=== PATIENT | female | born 1960 | race Caucasian/White ===

== ENCOUNTER → 2021-07-13 | Day surgery (SDC) | payer BC, OTHER ==
[~2021-07-13] MED LIST: BUPIVACAINE HCL 0.5% INJ 30 ML VIAL INJ ONE; BUPROPION XL150 MG PO; DEXAMETHASONE SOD PHOS INJ 4 MG/ML SDV IV ONE; FENTANYL CITRATE/PF 100MCG/2 ML INJ ONE; GLYCOPYRROLATE INJ 0.2 MG/ML VIAL IV ONE; LABETALOL HCL 5 MG/ML 20ML VIAL IV ONE; LIDOCAINE HCL 2% LOCAL INJ 5 ML SDV VIAL INJ ONE; MIDAZOLAM HCL 2 MG/2 ML VIAL ONE; NEOSTIGMINE 1 MG/ML 10ML VIAL IV ONE; NEOSTIGMINE 1 MG/ML 10ML VIAL ONE; ONDANSETRON HCL INJ 2MG/ML 2ML 2 MG/ML VIAL IV ONE; POVIDONE IODINE 0.05% 0.05 % ML PO ONE; PROPOFOL IV EMULSION 10 MG/ML 20 ML VIAL IV ONE; ROCURONIUM BROMIDE 10 MG/ML 5ML VIAL IV ONE; SERTRALINE HCL100 MG PO; SERZONE; SEVOFLURANE INHAL SOLN 250 ML PEN BTL INH ONE; SODIUM CHLORIDE 0.9% 50ML 100 ML ONE; SUCCINYLCHOLINE CHLORIDE 20 MG/ML 10ML VIAL IV ONE; ZOLOFT
[2021-07-13 14:00] VITALS: BP 142/46
== END | disposition home or self-care (01) ==
LOC: OR 10:00
PROVIDERS: ATTEND Podiatrist Foot & Ankle Surgery
DX: M66.872 Spontaneous rupture of other tendons, left ankle and foot (principal); M21.6X2 Other acquired deformities of left foot; M77.32 Calcaneal spur, left foot; F41.9 Anxiety disorder, unspecified; Z01.810 Encounter for preprocedural cardiovascular examination; Z01.812 Encounter for preprocedural laboratory examination; Z20.822 Contact with and (suspected) exposure to COVID-19; Z79.899 Other long term (current) drug therapy
CPT/HCPCS: 27654; 27687; 28118; 93005; J0330; J0690; J1100; J2001; J2250; J2405; J2704; J2710; J3010; J3490; Q4150; U0002; 76000

== ENCOUNTER 2025-05-23 08:54 | Emergency (ER) | payer MEDICARE ==
[~2025-05-23] VITALS: Ht 157.5 cm; Wt 96.2 kg
[~2025-05-23 08:54] MED LIST changes: -BUPIVACAINE HCL 0.5% INJ 30 ML VIAL INJ ONE; -DEXAMETHASONE SOD PHOS INJ 4 MG/ML SDV IV ONE; -FENTANYL CITRATE/PF 100MCG/2 ML INJ ONE; -GLYCOPYRROLATE INJ 0.2 MG/ML VIAL IV ONE; -LABETALOL HCL 5 MG/ML 20ML VIAL IV ONE; -LIDOCAINE HCL 2% LOCAL INJ 5 ML SDV VIAL INJ ONE; -MIDAZOLAM HCL 2 MG/2 ML VIAL ONE; -NEOSTIGMINE 1 MG/ML 10ML VIAL IV ONE; -NEOSTIGMINE 1 MG/ML 10ML VIAL ONE; -ONDANSETRON HCL INJ 2MG/ML 2ML 2 MG/ML VIAL IV ONE; -POVIDONE IODINE 0.05% 0.05 % ML PO ONE; -PROPOFOL IV EMULSION 10 MG/ML 20 ML VIAL IV ONE; -ROCURONIUM BROMIDE 10 MG/ML 5ML VIAL IV ONE; -SEVOFLURANE INHAL SOLN 250 ML PEN BTL INH ONE; -SODIUM CHLORIDE 0.9% 50ML 100 ML ONE; -SUCCINYLCHOLINE CHLORIDE 20 MG/ML 10ML VIAL IV ONE
[2025-05-23 09:46] LABS: BASOPHILS % 0.3 % (0.0-1.0); EOSINOPHILS % 0.9 % (0.0-6.0); LYMPHOCYTES % 13.2 % (18.0-39.1); MONOCYTES % 3.8 % (4.4-11.3); NEUTROPHILS % 81.6 % (38.7-80.0); RED CELL DISTRIBUTION WIDTH 14.0 % (11.7-14.4)
[2025-05-23 10:14] LABS: EST GLOMERULAR FILTRATION RATE 68.0 ML/MIN (>=60)
[2025-05-23] MEDS: ONDANSETRON HCL 4 MG ORAL DISINTEGRATING TAB PO ONE (10:21)
[2025-05-23] MEDS: DICYCLOMINE HCL 20 MG/2 ML VIAL IM ONE (10:21)
[2025-05-23 12:10] VITALS: PULSE 59
[2025-05-23] MEDS ORDERED: PANTOPRAZOLE SO40 MG PO (14:05)
[2025-05-23] MEDS ORDERED: ONDANSETRON ODT4 MG PO (14:05)
[2025-05-23] MEDS: PANTOPRAZOLE SOD 40 MG TABEC PO ONE (14:10)
[2025-05-23] MEDS: LIDOCAINE VISC 2% SOLN 15 ML UDC PO ONE (14:11)
[2025-05-23] MEDS: MAGNESIUM/ALUMINUM/SIMETHICONE 30 ML UDC PO ONE (14:11)
[2025-05-23] MEDS: ONDANSETRON HCL INJ 2MG/ML 2ML 2 MG/ML VIAL IV STA (14:12)
[2025-05-23] MEDS: BELLADONNA ALK/PHENOBARBITAL 5 ML UDC PO ONE (14:12)
[2025-05-23] MEDS: SODIUM CHLORIDE 0.9% 1000ML 1,000 ML IV STA (14:12)
[2025-05-23 14:24] VITALS: RESP 17; TEMP 98.3; O2SAT 98
== END 2025-05-23 14:27 | disposition home or self-care (01) ==
LOC: ER 09:10
DX: R11.2 Nausea with vomiting, unspecified (principal); K29.00 Acute gastritis without bleeding; R10.13 Epigastric pain; F32.A Depression, unspecified
CPT/HCPCS: 36415; 71045; 74176; 76705; 80053; 82550; 83690; 83735; 84484; 85025; 93005; 99284; J0500; J2470; Q0162; J2405